=== PATIENT | male | born 1960 | race African-American/Black ===

== ENCOUNTER 2020-02-22 12:20 | Emergency (ER) | payer OTHER ==
[2020-02-22 13:45] VITALS: BMI 28.4
[2020-02-22 14:01] LABS: BASO % 0.5 % (0-2.0); EOS % 3.7 % (0-4.5); HEMATOCRIT 33.4 % (35.4-49); HEMOGLOBIN 10.8 GM/dL (11.7-16.9); LYMPH % 45.6 % (8-40); MCH 30.2 pg (25.7-33.7); MCHC 32.3 g/dl (32.0-35.9); MEAN CELL VOLUME 93.5 fl (80-96); MEAN PLT VOLUME 7.7 fl (7.5-11.1); NEUT % 38.2 % (42.8-82.8); PLATELET COUNT 237 K/MM3 (134-434); RBC 3.57 M/mm3 (4.00-5.60); RDW 13.4 % (11.9-15.9)
[2020-02-22 14:23] LABS: CHLORIDE 110 mmol/L (98-107); SODIUM 142 mmol/L (136-145)
[2020-02-22 14:24] LABS: CALCIUM 8.7 mg/dL (8.5-10.1)
[2020-02-22 14:26] LABS: ALBUMIN 3.1 g/dl (3.4-5.0); ANION GAP 7 MMOL/L (8-16); BLOOD UREA NITROGEN 14.6 mg/dL (7-18); CO2 26 mmol/L (21-32); GLUCOSE,RANDOM 114 mg/dL (74-106)
[2020-02-22 14:28] LABS: CREATININE 0.8 mg/dL (0.55-1.3); SGOT/AST 27 U/L (15-37); SGPT/ALT 31 U/L (13-61)
[2020-02-22 14:30] LABS: BILIRUBIN,TOTAL 0.2 mg/dL (0.2-1); TOT PROT 6.4 g/dl (6.4-8.2)
[2020-02-22 14:31] LABS: ALK PHOS 113 U/L (45-117)
[2020-02-22 21:55] VITALS: BP 138/69; PULSE 79
== END 2020-02-22 21:55 | disposition home or self-care (01) ==
LOC: JER 12:20
DX: R07.9 Chest pain, unspecified (principal)
CPT/HCPCS: 36415; 71046-TC-FY; 80053; 84484; 85025; 86900; 93005; 93010; 99284-25

== ENCOUNTER 2020-07-11 09:11 | Inpatient (IN) | payer OTHER ==
[2020-07-11 10:54] VITALS: BMI 20.9
[2020-07-11] MEDS ORDERED: ACETAMINOPHEN 325 MG TABLET (FP) PO PRN ×2 (11:31)
[2020-07-11] MEDS ORDERED: diazePAM 5 MG TABLET PO PRN (11:31)
[2020-07-11] MEDS ORDERED: MAGNESIUM CITRATE 300 ML BOTTLE PO PRN (11:31)
[2020-07-11] MEDS ORDERED: ONDANSETRON *ODT* 4 MG TABLET SL PRN (11:31)
[2020-07-11] MEDS ORDERED: MENTHOL/PHENOL 1 EACH UD MM PRN (11:31)
[2020-07-11] MEDS ORDERED: IBUPROFEN 400 MG TABLET (FP) PO PRN (11:31)
[2020-07-11] MEDS ORDERED: BISMUTH SUBSALICYLATE 262 MG/15 ML BTL PO PRN (11:31)
[2020-07-11] MEDS ORDERED: METHOCARBAMOL 500 MG TABLET PO PRN (11:31)
[2020-07-11] MEDS ORDERED: MAGNESIUM HYDROX 2400MG/30ML ORAL SUSPENSION 30 ML CUP PO PRN (11:31)
[2020-07-11] MEDS ORDERED: ALBUTEROL SO4 HFA INHALER IH PRN (11:34)
[2020-07-11] MEDS ORDERED: METHADONE HCL 10 MG TABLET (FOR DETOX USE ONLY) ONE (12:16)
[2020-07-11] MEDS: diazePAM 5 MG TABLET PO SCH ×3 (12:52→22:18)
[2020-07-11] MEDS: hydrOXYzine PAMOATE 25 MG CAPSULE (FP) PO SCH ×3 (13:32→22:18)
[2020-07-11] MEDS: PRENATAL VITAMINS W/ FOLIC ACID TABLET (FP) PO SCH (13:33)
[2020-07-11] MEDS: MAG HYDROX/AL HYDROX/SIMETH 30 ML UNIT-DOSE CUP PO PRN (15:01)
[2020-07-11 17:07] LABS: HEMOGLOBIN 13.3 GM/dL (11.7-16.9); MCH 29.9 pg (25.7-33.7); MCHC 33.2 g/dl (32.0-35.9); MEAN CELL VOLUME 90.1 fl (80-96); MEAN PLT VOLUME 7.8 fl (7.5-11.1); PLATELET COUNT 313 K/MM3 (134-434); RBC 4.44 M/mm3 (4.00-5.60); RDW 14.6 % (11.9-15.9); WHITE BLOOD COUNT 6.3 K/mm3 (4.0-10.0)
[2020-07-11 17:11] LABS: ALBUMIN 4.2 g/dl (3.4-5.0); CALCIUM 9.1 mg/dL (8.5-10.1)
[2020-07-11 17:12] LABS: BLOOD UREA NITROGEN 32.7 mg/dL (7-18)
[2020-07-11 17:14] LABS: CREATININE 2.4 mg/dL (0.55-1.3)
[2020-07-11 17:16] LABS: BILIRUBIN,TOTAL 0.4 mg/dL (0.2-1); TOT PROT 7.7 g/dl (6.4-8.2)
[2020-07-11] MEDS: MELATONIN 5 MG TABLETS PO SCH (22:18)
[2020-07-11] MEDS: THIAMINE HCL 100 MG TABLET (FP) PO SCH (22:20)
[2020-07-12] MEDS: MAG HYDROX/AL HYDROX/SIMETH 30 ML UNIT-DOSE CUP PO PRN ×3 (02:44→18:55)
[2020-07-12] MEDS: diazePAM 5 MG TABLET PO SCH ×4 (05:49→22:16)
[2020-07-12] MEDS: hydrOXYzine PAMOATE 25 MG CAPSULE (FP) PO SCH ×5 (05:49→22:16)
[2020-07-12] MEDS: amLODIPine BESYLATE 10 MG TABLET (FP) PO SCH (10:10)
[2020-07-12] MEDS: PRENATAL VITAMINS W/ FOLIC ACID TABLET (FP) PO SCH (10:10)
[2020-07-12] MEDS: PANTOPRAZOLE 40 MG TABLET PO SCH (10:10)
[2020-07-12] MEDS ORDERED: PNEUMOC 13-VAL CONJ-DIP CRM/PF 0.5 ML DISP.SYRIN IM ONE (12:00)
[2020-07-12] MEDS ORDERED: PNEUMOCOCCAL 23 VACCINE 0.5 ML VIAL IM ONE (12:00)
[2020-07-12] MEDS: THIAMINE HCL 100 MG TABLET (FP) PO SCH (22:16)
[2020-07-12] MEDS: MELATONIN 5 MG TABLETS PO SCH (22:16)
[2020-07-13] MEDS: MAG HYDROX/AL HYDROX/SIMETH 30 ML UNIT-DOSE CUP PO PRN ×3 (04:31→20:08)
[2020-07-13] MEDS ORDERED: METHADONE HCL 40 MG DISPERSABLE TABLET ONE (04:40)
[2020-07-13] MEDS ORDERED: METHADONE HCL 10 MG TABLET ONE (04:40)
[2020-07-13] MEDS: hydrOXYzine PAMOATE 25 MG CAPSULE (FP) PO SCH ×5 (06:01→22:38)
[2020-07-13] MEDS: diazePAM 5 MG TABLET PO SCH ×3 (06:02→22:38)
[2020-07-13] MEDS: METHADONE 120 MG, METHADONE 30 MG PO SCH (06:03)
[2020-07-13] MEDS ORDERED: METHADONE HCL 40 MG DISPERSABLE TABLET PO SCH (10:00)
[2020-07-13] MEDS: PANTOPRAZOLE 40 MG TABLET PO SCH (10:18)
[2020-07-13] MEDS: PRENATAL VITAMINS W/ FOLIC ACID TABLET (FP) PO SCH (10:18)
[2020-07-13] MEDS: amLODIPine BESYLATE 10 MG TABLET (FP) PO SCH (10:18)
[2020-07-13] MEDS ORDERED: PNEUMOCOCCAL 23 VACCINE 0.5 ML VIAL IM ONE (12:00)
[2020-07-13] MEDS ORDERED: POTASSIUM CHLORIDE ORAL LIQUID 20 MEQ/15 ML PO ONE ×2 (13:30→17:30)
[2020-07-13] MEDS: THIAMINE HCL 100 MG TABLET (FP) PO SCH (22:37)
[2020-07-13] MEDS: MELATONIN 5 MG TABLETS PO SCH (22:37)
[2020-07-14] MEDS ORDERED: METHADONE HCL 10 MG TABLET ONE (04:34)
[2020-07-14] MEDS ORDERED: METHADONE HCL 40 MG DISPERSABLE TABLET ONE (04:34)
[2020-07-14] MEDS: METHADONE 120 MG, METHADONE 30 MG PO SCH (06:10)
[2020-07-14] MEDS: hydrOXYzine PAMOATE 25 MG CAPSULE (FP) PO SCH ×5 (06:12→22:27)
[2020-07-14] MEDS: diazePAM 5 MG TABLET PO SCH ×2 (06:12→17:24)
[2020-07-14] MEDS: amLODIPine BESYLATE 10 MG TABLET (FP) PO SCH (10:13)
[2020-07-14] MEDS: PANTOPRAZOLE 40 MG TABLET PO SCH (10:13)
[2020-07-14] MEDS: PRENATAL VITAMINS W/ FOLIC ACID TABLET (FP) PO SCH (10:13)
[2020-07-14] MEDS: MAG HYDROX/AL HYDROX/SIMETH 30 ML UNIT-DOSE CUP PO PRN ×2 (10:14→15:41)
[2020-07-14] MEDS: THIAMINE HCL 100 MG TABLET (FP) PO SCH (22:26)
[2020-07-14] MEDS: MELATONIN 5 MG TABLETS PO SCH (22:27)
[2020-07-15] MEDS: MAG HYDROX/AL HYDROX/SIMETH 30 ML UNIT-DOSE CUP PO PRN (02:45)
[2020-07-15] MEDS ORDERED: METHADONE HCL 40 MG DISPERSABLE TABLET ONE (04:47)
[2020-07-15] MEDS ORDERED: METHADONE HCL 10 MG TABLET ONE (04:47)
[2020-07-15] MEDS: METHADONE 120 MG, METHADONE 30 MG PO SCH (05:40)
[2020-07-15] MEDS: hydrOXYzine PAMOATE 25 MG CAPSULE (FP) PO SCH (05:41)
[2020-07-15] MEDS ORDERED: diazePAM 5 MG TABLET PO ONE (06:00)
[2020-07-15 09:26] VITALS: BP 108/69; PULSE 86; TEMP 97.5
== END 2020-07-15 09:54 | disposition home or self-care (01) | DRG 773 ==
LOC: YASAS 09:11 → Y6N 12:18
PROVIDERS: ADMIT Allergy & Immunology; ATTEND Allergy & Immunology
PROC: HZ2ZZZZ Detoxification Services for Substance Abuse Treatment (ICD-10-PCS; principal; 2020-07-11)
DX: F10.230 Alcohol dependence with withdrawal, uncomplicated (principal); F11.20 Opioid dependence, uncomplicated; F14.20 Cocaine dependence, uncomplicated; F17.210 Nicotine dependence, cigarettes, uncomplicated; I10 Essential (primary) hypertension; K21.9 Gastro-esophageal reflux disease without esophagitis; R79.89 Other specified abnormal findings of blood chemistry
CPT/HCPCS: 36415; 80053; 82540; 84132; 84520; 85027; 86780